=== PATIENT | female | born 1960 ===

== ENCOUNTER 2017-05-30 09:11 | Day surgery (SDC) | payer OTHER ==
[2017-05-30] MEDS ORDERED: Lactated Ringer's 500 ML IV ONE (10:35)
[2017-05-30 10:38] VITALS: BMI 31.5
[2017-05-30] MEDS ORDERED: Midazolam 2 MG/2 ML VIAL ONE (11:44)
[2017-05-30] MEDS ORDERED: Propofol 10 mg/ml Inj (20 ML) ONE (11:44)
[2017-05-30] MEDS ORDERED: Lidocaine 2% MPF (5 ml) Inj ONE (12:08)
[2017-05-30 13:04] VITALS: BP 114/70; PULSE 71; RESP 18; TEMP 97.2; O2SAT 99
== END 2017-05-30 13:16 | disposition home or self-care (01) ==
LOC: H.ENDO 09:11
PROVIDERS: ATTEND Internal Medicine Gastroenterology
DX: Z12.11 Encounter for screening for malignant neoplasm of colon (principal); E78.5 Hyperlipidemia, unspecified; M79.1 Myalgia; K64.8 Other hemorrhoids; D12.5 Benign neoplasm of sigmoid colon; K57.30 Diverticulosis of large intestine without perforation or abscess without bleeding; R10.13 Epigastric pain; K31.9 Disease of stomach and duodenum, unspecified
CPT/HCPCS: 43239; 45380; 88305; J2250; J2704; J7120

== ENCOUNTER 2018-05-25 10:38 | Day surgery (SDC) | payer OTHER ==
[2018-05-25 11:13] VITALS: BMI 31.1
[2018-05-25] MEDS ORDERED: Lactated Ringer's 500 ML IV ONE (11:19)
[2018-05-25] MEDS ORDERED: Propofol 10 mg/ml Inj (20 ML) ONE (13:25)
[2018-05-25] MEDS ORDERED: Midazolam 2 MG/2 ML VIAL ONE (13:25)
[2018-05-25 14:06] VITALS: BP 104/60; PULSE 83; RESP 14; TEMP 96.9; O2SAT 100
== END 2018-05-25 14:52 | disposition home or self-care (01) ==
LOC: H.ENDO 10:38
PROVIDERS: ATTEND Internal Medicine Gastroenterology
DX: K31.89 Other diseases of stomach and duodenum (principal); E11.9 Type 2 diabetes mellitus without complications; E78.5 Hyperlipidemia, unspecified; R10.13 Epigastric pain
CPT/HCPCS: 43239; 88305; J2001; J2250; J2704; J7120

== ENCOUNTER 2018-12-21 10:02 | Day surgery (SDC) | payer OTHER ==
[2018-12-21] MEDS ORDERED: Lactated Ringer's 500 ML IV ONE (10:15)
[2018-12-21 10:19] VITALS: BMI 28.5
[2018-12-21 10:31] VITALS: TEMP 97
[2018-12-21] MEDS ORDERED: Propofol 10 mg/ml Inj (20 ML) ONE ×2 (11:07→11:18)
[2018-12-21 12:02] VITALS: BP 128/69; PULSE 64; RESP 14; O2SAT 98
== END 2018-12-21 12:50 | disposition home or self-care (01) ==
LOC: H.ENDO 10:02
PROVIDERS: ATTEND Internal Medicine Gastroenterology
DX: Z12.11 Encounter for screening for malignant neoplasm of colon (principal); E11.9 Type 2 diabetes mellitus without complications; K62.1 Rectal polyp; D12.0 Benign neoplasm of cecum; K64.0 First degree hemorrhoids; K62.5 Hemorrhage of anus and rectum; K59.00 Constipation, unspecified
CPT/HCPCS: 45380; 88305; J2001; J2704; J7120